=== PATIENT | female | born 2005 | race Caucasian/White ===

== ENCOUNTER 2023-10-08 21:13 | Emergency (ER) | payer SELFPAY ==
[~2023-10-08] VITALS: Ht 160 cm; Wt 56.2 kg
[2023-10-08 21:40] VITALS: BP 106/68; PULSE 101; RESP 17; TEMP 98.1; O2SAT 100
[2023-10-08 22:12] LABS: APPEARANCE,URINE CLEAR (CLEAR); BILIRUBIN,URINE NEGATIVE (NEGATIVE); BLOOD, URINE NEGATIVE (NEGATIVE); COLOR,URINE YELLOW (YELLOW); LEUKOCYTE ESTERASE ,URINE NEGATIVE (NEGATIVE); NITRITE, URINE NEGATIVE (NEGATIVE); PROTEIN,URINE NEGATIVE (NEGATIVE); UGLUCOSE NEGATIVE (NEGATIVE); UROBILINOGEN,URINE 0.2 EU/dL (0.2 - 1)
[2023-10-08] MEDS ORDERED: KETOROLAC 30 MG/ML VIAL IM ONE (23:50)
[2023-10-09] MEDS ORDERED: NAPR-54 PO (01:49)
[2023-10-09 02:08] VITALS: BP 105/69; PULSE 98; RESP 17; TEMP 98.1; O2SAT 100
== END 2023-10-09 02:08 | disposition home or self-care (01) ==
LOC: MED 21:13
DX: N83.201 Unspecified ovarian cyst, right side (principal); Z79.1 Long term (current) use of non-steroidal anti-inflammatories (NSAID)
CPT/HCPCS: 76856; 81003; 81025; 93976; 96372; 99285; J1885